=== PATIENT | male | born 2005 | race Caucasian/White ===

== ENCOUNTER 2025-02-11 13:28 | Emergency (ER) | payer BC ==
[2025-02-11] MEDS ORDERED: Ondansetron PF 4 MG/2 ML Vial ONE (13:55)
[2025-02-11] MEDS ORDERED: Ketorolac Tromethamine 30 MG (1 mL) VIAL ONE (13:55)
[2025-02-11 14:04] LABS: #Basophils 0.1 thou/uL (0.0-0.2); #Eosinophils 0.1 thou/uL (0.0-0.7); #Lymphocytes 2.5 thou/uL (1.20-3.40); #Monocytes 0.5 thou/uL (0.11-0.59); #Neutrophils 6.3 thou/uL (1.40-6.50); %Basophils 1.0 % (0.0-1.0); %Eosinophils 0.6 % (0.0-10.0); %Lymphocytes 26.6 % (28.0-48.0); %Monocytes 4.9 % (0.0-4.0); %Neutrophils 66.9 % (31.0-61.0); Hematocrit 29.1 % (42.0-52.0); Hemoglobin 10.0 g/dL (14.0-18.0); Mean Corpuscular Hemoglobin 30.9 pg (25.0-35.0); Mean Corpuscular Volume 90.4 fl (78.0-98.0); Platelet Count 235 10x3/uL (130-400); Red Blood Cell (RBC) Count 3.22 mill/uL (4.00-5.20); White Blood Cell (WBC) Count 9.4 10x3/uL (4.8-10.8)
[2025-02-11 14:19] LABS: Bicarbonate (HCO3v) 5.4 mmol/L (22.0-28.0); CO2 Tension (PvCO2) 18.1 mmHg (42.0-51.0); Calcium, Ionized 0.79 mmol/L (1.15-1.33); Chloride 120 mmol/L (98-107); Hemoglobin - Calc 9.7 g/dL (14.0-18.0); Potassium 3.4 mmol/L (3.5-5.1); Sodium 139 mmol/L (138-145); T. Carbon Dioxide 6.0 mmol/L (22.0-28.0); vO2 Saturation-calc 84.4 % (60.0-85.0)
[2025-02-11] MEDS ORDERED: NS 0.9% w/ 20 MEQ KCL 1,000 ML ONE (14:23)
[2025-02-11] MEDS ORDERED: INSULIN REGULAR IN 0.9 % NACL 100 ML ONE (14:23)
[2025-02-11 14:24] LABS: Glucose, Urine (Dipstick) 500 mg/dL (Negative); Leukocyte Negative (Negative); Protein, Urine (Dipstick) Negative (Neg-Trace); Specific Gravity, Urine 1.020 (1.005-1.030)
[2025-02-11 14:28] LABS: ALT (SGPT) 13 U/L (Less than 45); AST (SGOT) 20 U/L (11-34); Albumin 2.4 g/dL (3.1-4.5); Alkaline Phosphatase 54 U/L (50-130); BUN (Urea Nitrogen) 12 mg/dL (8.9-20.6); Bilirubin, Total 0.2 mg/dL (0.3-1.2); Calc. Creatinine Clearance 0 mL/min (70-130); Chloride 117 mmol/L (98-107); Globulin 1.6 g/dL (2.4-3.5); Potassium 3.4 mmol/L (3.5-5.1); Sodium 141 mmol/L (136-145)
[2025-02-11 14:29] LABS: Lipase 11 U/L (8-78)
[2025-02-11 14:59] LABS: Calcium 5.4 mg/dL (7.8-10.44); Carbon Dioxide Less than 8 mmol/L (22-29); Glucose 442 mg/dL (70-105)
[2025-02-11 15:01] LABS: Magnesium 0.9 mg/dL (1.7-2.2)
[2025-02-11] MEDS ORDERED: Magnesium 2 GM/50 ML BAG (IN WATER) ONE (15:04)
[2025-02-11 15:06] LABS: Bacteria/HPF Rare-Few HPF (None Seen); CAUTI Indications for Culture Alt mental st,lethar; RBC/HPF 0-3 HPF (0-3); WBC/HPF None Seen HPF (0-3)
[2025-02-11 15:07] LABS: Urine Culture Reflex No No
== END 2025-02-11 15:17 | disposition short-term general hospital (02) ==
LOC: MADERS 13:28
DX: E10.10 Type 1 diabetes mellitus with ketoacidosis without coma (principal); Z79.4 Long term (current) use of insulin
CPT/HCPCS: 36415; 36416; 71045; 80053; 81001; 82010; 82330; 82435; 82803; 83605; 83690; 83735; 84100; 84132; 84295; 85014; 85025; 93005; 96361; 96365; 96368; 96375; J1815; J1885; J2060; J2405; J3475; J3480